=== PATIENT | female | born 1965 | race Caucasian/White ===

== ENCOUNTER 2017-04-11 06:48 | Day surgery (SDC) | payer BC, OTHER ==
[~2017-04-11 06:48] MED LIST: Lactated Ringers 1,000 ML IV SCH; cefOXitin 1 GM in Premix Bag 1 BAG IV SCH
[2017-04-11] MEDS ORDERED: Midazolam 1 MG/ML 2 ML SDV ONE (07:05)
[2017-04-11] MEDS ORDERED: fentaNYL 100 MCG/2 ML SDV ONE (07:05)
[2017-04-11] MEDS ORDERED: Propofol 200 MG/20 ML SDV ONE ×4 (07:05→08:30)
--- NOTE | 2017-04-11 07:15 | PCM.PREANE ---
Preanesthetic Assessment - Anesthesia/Transfusion/Family Hx Anesthesia History: Prior Anesthesia Without Reaction Family History of Anesthesia Reaction: No Transfusion History: No Prior Transfusion(s) Intubation History: Unknown - Review of Systems General: No Symptoms Pulmonary: No Symptoms Cardiovascular: No Symptoms Gastrointestinal: No Symptoms, Other (screening colonoscopy) Neurological: No Symptoms Other: Reports: None - Physical Assessment Height: 1.55 m Weight: 50.349 kg ASA Class: 2 Mental Status: Alert & Oriented x3 Airway Class: Mallampati = 2 Dentition: Reports: Normal Dentition Thyro-Mental Finger Breadths: 3 Mouth Opening Finger Breadths: 2 ROM/Head Extension: Full Lungs: Clear to Auscultation, Normal Respiratory Effort Cardiovascular: Regular Rate, Regular Rhythm - Lab Values: Laboratory Last Values Urine HCG, Qual NEGATIVE (NEGATIVE) 04/11/17 06:59 - Allergies Allergies/Adverse Reactions: Allergies Allergy/AdvReac Type Severity Reaction Status Date / Time No Known Allergies Allergy Verified 04/06/17 11:19 - Blood Blood Available: No - Anesthesia Plan Pre-Op Medication Ordered: None - Acknowledgements Anesthesia Type Planned: MAC Pt an Appropriate Candidate for the Planned Anesthesia: Yes Alternatives and Risks of Anesthesia Discussed w Pt/Guardian: Yes Pt/Guardian Understands and Agrees with Anesthesia Plan: Yes PreAnesthesia Questionnaire - Past Surgical History Head Surgeries/Procedures: Reports: None Cardiovascular Surgical History: Reports: Varicose Other Cardiovascular Surgeries/Procedures: varicose vein stripping left leg Female Surgical History: Reports: Breast Implant - SUBSTANCE USE Smoking Status *Q: Current Every Day Smoker (1/2 ppd) Tobacco Use Within Last Twelve Months: Cigarettes Recreational Drug Use History: No - HOME MEDS Home Medications: Home Meds . [No Known Home Meds] 04/06/17 [History] - CURRENT (IN HOUSE) MEDS Current Meds: Current Medications Cefoxitin Sodium 1 gm/ Premix 50 mls @ 100 mls/hr IV ONETIME ROBERTO Lactated Ringer's (Ringers, Lactated) 1,000 mls @ 125 mls/hr IV ASDIRECTED ROBERTO Discontinued Medications Fentanyl (Sublimaze) Confirm Administered Dose 100 mcg .ROUTE .STK-MED ONE Stop: 04/11/17 07:06 Lidocaine HCl (Xylocaine-Mpf 1%) Confirm Administered Dose 5 ml .ROUTE .STK-MED ONE Stop: 04/11/17 07:07 Midazolam HCl (Versed 1 Mg/Ml) Confirm Administered Dose 2 mg .ROUTE .STK-MED ONE Stop: 04/11/17 07:06 Propofol (Diprivan 20 Ml) Confirm Administered Dose 200 mg .ROUTE .STK-MED ONE Stop: 04/11/17 07:06
[2017-04-11] MEDS ORDERED: Phenylephrine/Normal Saline 100 MCG/ML 10 ML Syringe ONE (07:40)
[2017-04-11] MEDS ORDERED: ePHEDrine 50 MG/ML SDV ONE (07:41)
--- NOTE | 2017-04-11 08:50 | PCM.OPNOTE ---
- General Post-Op/Procedure Note Date of Surgery/Procedure: 04/11/17 Operative Procedure(s): Colonoscopy with sigmoid biopsy Pre Op Diagnosis: Desire for colorectal cancer screening Post-Op Diagnosis: Mild angiodysplasia Anesthesia Technique: MAC (ASA II) Primary Surgeon: Antelmo Dumont Tetryl Screen Operator: Bandar Robison Condition: Good Free Text/Narrative:: Dictation [id number] CPT CODE 39831
--- NOTE | 2017-04-11 10:41 | OR ---
SURGEON: Antelmo Dumont M.D. DATE OF PROCEDURE: 04/11/2017 OPERATION PERFORMED: Colonoscopy with biopsy. SYSTEMS COORDINATOR: Dr. Robison, PGY-2. ANESTHESIA: MAC. ASA CLASSIFICATION: II. PREOPERATIVE DIAGNOSIS: Desire for colorectal cancer screening. POSTOPERATIVE DIAGNOSIS: Mild angiodysplasia. DESCRIPTION OF PROCEDURE: The patient was taken to the endoscopy room, positioned on the endoscopy table in the left lateral decubitus position. Time-out was called for appropriate identification of the patient and procedure. Monitored anesthesia care was provided. The colonoscope was inserted into the rectum and advanced with difficulty to the cecum. Cecum was identified by internal landmarks and external pressure. The colonoscope was retroflexed in the cecum to visualize the ascending colon from below, then straightened and slowly withdrawn. The cecum, ascending colon, hepatic flexure, transverse colon, splenic flexure, and descending colon showed no tumors, polyps, diverticula, or angiodysplastic changes. There were what appears to be mild angiodysplastic changes in the sigmoid colon. Biopsies of this area were taken. No ulcerations were noted. There were no diverticular changes and no polyps in the sigmoid colon. Once the colonoscope was withdrawn to the rectum, it was retroflexed to visualize the anal orifice from above. No tumors, polyps, or acute hemorrhoidal changes were noted. The colonoscope was then straightened, the rectum aspirated, and the colonoscope removed. The patient tolerated the procedure well and was taken to recovery room in stable condition. SHANE / MAHIN /[id number] GENE
== END 2017-04-11 09:27 | disposition home or self-care (01) ==
LOC: MW.SDS 06:48
PROVIDERS: ATTEND Surgery
DX: Z12.11 Encounter for screening for malignant neoplasm of colon (principal); K55.20 Angiodysplasia of colon without hemorrhage; Z98.890 Other specified postprocedural states; F17.200 Nicotine dependence, unspecified, uncomplicated
CPT/HCPCS: 45380; 81025; J2250; J3010; 88305; J2704

== ENCOUNTER 2018-01-03 08:11 | Emergency (ER) | payer BC, OTHER ==
[2018-01-03] MEDS ORDERED: Sodium Chloride 0.9% 1,000 ML IV ONE (08:59)
--- NOTE | 2018-01-03 09:06 | EDM.PDOC ---
ED HPI GENERAL MEDICAL PROBLEM - General Chief Complaint: Headache Stated Complaint: HEAD AND BODYACHES Time Seen by Provider: 01/03/18 08:14 Source of Information: Reports: Patient History Limitations: Reports: No Limitations - History of Present Illness INITIAL COMMENTS - FREE TEXT/NARRATIVE: Alina Tam is a 52 y/o female presenting today to the ER accompanied by her . Per patient and , she stared feeling diffuse headache and body aches on Sunday and have remained since then. She has tried acetaminophen without relieve in body aches. Has been endorsing some pressure when moving her eyes. No change in vision. No discharge or swelling. No recent trauma. She denies any nausea, vomiting. No abdominal pain, dysuria or change in bowel movements. No other sick contacts at home. No similar symptoms in the past. No recent travels. Per , they have been out gardening and golfing where they have noticed mosquitoes. Headache Pain Score (Numeric/FACES): 7 - Related Data Allergies Allergy/AdvReac Type Severity Reaction Status Date / Time No Known Allergies Allergy Verified 01/03/18 08:25 Home Meds: Home Meds Diclofenac Sodium [Voltaren] 50 mg PO TID PRN #20 tab.ec 01/03/18 [Rx] Past Medical History Neurological History: Reports: Migraines Other Neuro History: infrequent migraines - Past Surgical History Head Surgeries/Procedures: Reports: None Cardiovascular Surgical History: Reports: Varicose Other Cardiovascular Surgeries/Procedures: varicose vein stripping left leg GI Surgical History: Reports: Colonoscopy Female Surgical History: Reports: Breast Implant Social & Family History - Family History Family Medical History: Noncontributory - Tobacco Use Smoking Status *Q: Current Every Day Smoker Years of Tobacco use: 35 Packs/Tins Daily: 1 - Caffeine Use Caffeine Use: Reports: Coffee - Recreational Drug Use Recreational Drug Use: No ED ROS GENERAL - Review of Systems Review Of Systems: See Below Constitutional: Reports: Weakness, Fatigue. Denies: Fever, Chills, Night Sweats HEENT: Reports: Eye Pain. Denies: Eye Discharge, Vertigo, Vision Change Respiratory: Reports: No Symptoms Cardiovascular: Reports: No Symptoms Endocrine: Reports: No Symptoms GI/Abdominal: Reports: No Symptoms : Reports: No Symptoms Musculoskeletal: Reports: Muscle Pain Skin: Reports: No Symptoms Neurological: Reports: Headache. Denies: Numbness, Seizure, Tingling, Change in Speech, Gait Disturbance Psychiatric: Reports: No Symptoms Hematologic/Lymphatic: Reports: No Symptoms Immunologic: Reports: No Symptoms - Physical Exam Exam: See Below Exam Limited By: No Limitations General Appearance: Alert, No Apparent Distress, Thin Eye Exam: Bilateral Eye: Normal Inspection, Other (discomfort with ocular movement. No discharge or conjunctival erythema.) Throat/Mouth: Normal Inspection, Normal Lips, Normal Teeth, Normal Gums, Normal Oropharynx, Normal Voice, No Airway Compromise Head Exam: Atraumatic, Normocephalic Neck: Normal Inspection, Supple, Non-Tender, Full Range of Motion Respiratory/Chest: No Respiratory Distress, Lungs Clear, Normal Breath Sounds, No Accessory Muscle Use, Chest Non-Tender Cardiovascular: Normal Peripheral Pulses, Regular Rate, Rhythm, No Edema, No Gallop, No JVD, No Murmur, No Rub GI/Abdominal: Normal Bowel Sounds, Soft, Non-Tender, No Organomegaly, No Distention, No Abnormal Bruit, No Mass Neuro Exam (Abbreviated): Alert, Oriented, CN II-XII Intact, Normal Cognition, Normal Gait, Normal Reflexes, No Motor/Sensory Deficits Extremities: Normal Inspection, Normal Range of Motion, Non-Tender, No Pedal Edema, Normal Capillary Refill Psychiatric: Normal Affect, Normal Mood Skin Exam: Warm, Dry, Intact, Normal Color, No Rash Course - Vital Signs Last Recorded V/S: Last Vital Signs Temp 36.8 C 01/03/18 08:19 Pulse 69 01/03/18 09:30 Resp 18 01/03/18 09:30 BP 94/62 01/03/18 09:30 Pulse Ox 98 01/03/18 09:30 - Orders/Labs/Meds Orders: Active Orders 24 hr Category Date Time Status UA W/MICROSCOPIC [URIN] Stat Lab 01/03/18 09:35 Ordered [facility] [REF] Stat Lab 01/03/18 09:03 Received Labs: Laboratory Tests 01/03/18 01/03/18 01/03/18 Range/Units 09:03 09:03 09:35 WBC 3.20 L (4.0-11.0) K/uL RBC 4.70 (4.30-5.90) M/uL Hgb 14.1 (12.0-16.0) g/dL Hct 41.7 (36.0-46.0) % MCV 88.7 (80.0-98.0) fL MCH 30.0 (27.0-32.0) pg MCHC 33.8 (31.0-37.0) g/dL RDW Std Deviation 42.4 (28.0-62.0) fl RDW Coeff of Анна 13 (11.0-15.0) % Plt Count 105 L (150-400) K/uL MPV 11.90 (7.40-12.00) fL Add Manual Diff YES Neutrophils % (Manual) 58 (48.0-80.0) % Lymphocytes % (Manual) 32 (16.0-40.0) % Monocytes % (Manual) 10 (0.0-15.0) % Nucleated RBC % 0.0 /100WBC Absolute Seg Neuts 1.9 (1.4-5.7) Lymphocytes # (Manual) 1.0 (0.6-2.4) Monocytes # (Manual) 0.3 (0.0-0.8) Nucleated RBCs # 0 K/uL Sodium 139 (136-145) mmol/L Potassium 4.0 (3.5-5.1) mmol/L Chloride 106 (98-107) mmol/L Carbon Dioxide 25.4 (21.0-32.0) mmol/L BUN 16 (7.0-18.0) mg/dL Creatinine 1.0 (0.6-1.0) mg/dL Est Cr Clr Drug Dosing 51.95 mL/min Estimated GFR (MDRD) 58.5 ml/min Glucose 83 (74-106) mg/dL Calcium 8.7 (8.5-10.1) mg/dL Total Bilirubin 0.3 (0.2-1.0) mg/dL AST 17 (15-37) IU/L ALT 21 (14-63) IU/L Alkaline Phosphatase 53 (46-116) U/L Total Protein 6.5 (6.4-8.2) g/dL Albumin 3.4 (3.4-5.0) g/dL Globulin 3.1 (2.0-3.5) g/dL Albumin/Globulin Ratio 1.1 L (1.3-2.8) Urine Color YELLOW Urine Appearance CLEAR Urine pH 5.5 (5.0-8.0) Ur Specific [place] >= 1.030 (1.001-1.035) Urine Protein NEGATIVE (NEGATIVE) mg/dL Urine Glucose (UA) NEGATIVE (NEGATIVE) mg/dL Urine Ketones NEGATIVE (NEGATIVE) mg/dL Urine Occult Blood NEGATIVE (NEGATIVE) Urine Nitrite NEGATIVE (NEGATIVE) Urine Bilirubin NEGATIVE (NEGATIVE) Urine Urobilinogen 0.2 (<2.0) EU/dL Ur Leukocyte Esterase NEGATIVE (NEGATIVE) Urine RBC 0-2 (0-2/HPF) Urine WBC 0-2 (0-5/HPF) Ur Epithelial Cells MANY (NONE-FEW) Urine Bacteria 1+ H (NEGATIVE) Meds: Medications Discontinued Medications Generic Name Dose Route Start Last Admin Trade Name Freq PRN Reason Stop Dose Admin Sodium Chloride 1,000 mls @ 999 mls/hr 01/03/18 08:59 01/03/18 09:28 Normal Saline IV 01/03/18 09:59 999 mls/hr .BOLUS ONE Administration Ketorolac Tromethamine 30 mg 01/03/18 09:50 01/03/18 09:55 Toradol IVPUSH 01/03/18 09:51 30 mg ONETIME ONE Administration - Re-Assessments/Exams Free Text/Narrative Re-Assessment/Exam: CT head w/o contrast did not show any intracranial hemorrhage. Chest xray did no show any acute pulmonary process. Ordered 1 L NS bolus and ketorolac 30 mg IV once. 01/03/18 09:55 Departure - Departure Time of Disposition: 10:20 Disposition: Home, Self-Care 01 Condition: Good Clinical Impression: Generalized body aches Headache Qualifiers: Headache type: other headache syndrome Qualified Code(s): G44.89 - Other headache syndrome - Discharge Information *PRESCRIPTION DRUG MONITORING PROGRAM REVIEWED*: Not Applicable *COPY OF PRESCRIPTION DRUG MONITORING REPORT IN PATIENT ALIX: Not Applicable Instructions: General Headache Without Cause, [id number], Musculoskeletal Pain Referrals: PCP,None [Primary Care Provider] - Forms: ED Department Discharge Additional Instructions: Take diclofenac 50 mg PO three times a day as needed for body aches. Stay hydrated and rest. Follow-up with your primary care provider within 1 week. - My Orders Last 24 Hours: My Active Orders 01/03/18 09:03 [facility] [REF] Stat 01/03/18 09:35 UA W/MICROSCOPIC [URIN] Stat - Assessment/Plan Last 24 Hours: My Active Orders 01/03/18 09:03 [facility] [REF] Stat 01/03/18 09:35 UA W/MICROSCOPIC [URIN] Stat
--- NOTE | 2018-01-03 09:33 | CR ---
EXAMINATION: Two-view chest (PA and Lateral views). HISTORY: Headache. FINDINGS: The trachea is midline. The cardiomediastinal silhouette is within normal limits. No pulmonary infilt rates, effusions or pneumothorax. Osseous structures appear unremarkable. IMPRESSION: No acute cardiopulmonary process.
--- NOTE | 2018-01-03 09:34 | CT ---
EXAMINATION: Non contrast CT head. Coronal and sagittal reformats. HISTORY: Headache FINDINGS: No evidence of intra or extra axial hemorrhage, mass, midline shift, hydrocephalus or edema. No hypoattenuation changes in the major vascular territories to suggest acute infarct. No abnormal intracranial calcifications are detected. No evidence of substantial vascular calcificat ions. There is opacification of a few ethmoid air cells. There is an mastoid air cells are clear. Pituitary fossa appears unremarkable. Orbits and globes are symmetric. Calvarium is intact. No evidence of skull fracture. IMPRESSION: No acute intracranial findings.
[2018-01-03] MEDS ORDERED: Ketorolac 30 MG/ML SDV IVPUSH ONE (09:50)
== END 2018-01-03 10:30 | disposition home or self-care (01) ==
LOC: MW.ED 08:11
DX: G44.89 Other headache syndrome (principal); R52 Pain, unspecified; F17.210 Nicotine dependence, cigarettes, uncomplicated
CPT/HCPCS: 36415; 70450; 71046; 80053; 81001; 85025; 86788; 96361; 96374; 99284; J1885; J7040

== ENCOUNTER 2018-02-23 21:52 | Emergency (ER) | payer OTHER ==
[2018-02-23] MEDS ORDERED: Pantoprazole 40 MG Vial IVPUSH ONE (21:57)
[2018-02-23] MEDS ORDERED: Sodium Chloride 0.9% 10 ML Syringe FLUSH PRN (21:57)
[2018-02-23] MEDS ORDERED: Sodium Chloride 0.9% 2.5 ML Syringe FLUSH PRN (21:57)
[2018-02-23] MEDS ORDERED: Ondansetron 4 MG/2 ML SDV IVPUSH ONE (21:57)
[2018-02-23] MEDS ORDERED: Sodium Chloride 0.9% 1,000 ML IV ONE (21:57)
[2018-02-23] MEDS ORDERED: Morphine 2 MG/ML Syringe IVPUSH ONE (21:57)
--- NOTE | 2018-02-23 22:01 | EDM.PDOC ---
ED HPI GENERAL MEDICAL PROBLEM - General Chief Complaint: Abdominal Pain Stated Complaint: PAIN IN STOMACHE Time Seen by Provider: 02/23/18 21:56 - History of Present Illness INITIAL COMMENTS - FREE TEXT/NARRATIVE: HISTORY AND PHYSICAL: History of present illness: The patient is a 52-year-old female who presents with sudden onset of mid epigastric pain that started while she was at a movie theater watching a movie. She said that she had grilled cheese for dinner as well as butter popcorn but has no history of food intolerance. She said the pain started suddenly sharp and is improved when she lays down. She had no nausea or vomiting and the pain did not radiate up to her chest and does not radiate right or left or to the back. She says she doesn't feel bloated and earlier today she had a completely normal day without any systemic complaints. She currently does not have any nausea and she had a normal bowel movement earlier today which was not black or bloody and not diarrhea. She has no urinary complaints and has a history of a bilateral tubal ligation. Initially the patient was rushed in by family and once she laid down she now rates the pain as a 3-4/10. She has no significant social history. She took no medications prior to coming here. She has no shortness of breath fevers chills or upper respiratory complaints and no flank or back pain. Review of systems: As per history of present illness and below otherwise all systems reviewed and negative. Past medical history: As per history of present illness and as reviewed below otherwise noncontributory. Surgical history: As per history of present illness and as reviewed below otherwise noncontributory. Social history: No reported history of drug or alcohol abuse. Family history: As per history of present illness and as reviewed below otherwise noncontributory. Physical exam: General: Well-developed well-nourished thin female who is nontoxic and is speaking clearly and easily in the ED and is in no overt distress. Vital signs are reviewed by me HEENT: Atraumatic, normocephalic, , negative for conjunctival pallor or scleral icterus, mucous membranes moist, throat clear, neck supple, nontender, trachea midline. Lungs: Clear to auscultation, breath sounds equal bilaterally, chest nontender. No wheezing stridor or work of breathing Heart: S1S2, regular rate and rhythm no overt murmurs Abdomen: Soft, nondistended, slightly hypoactive bowel sounds. There is tympany on percussion throughout the abdomen but more localized to the right of the umbilicus but there is no tenderness with this. There is some moderate epigastric tenderness on deep palpation does not localize right or left and no lower abdominal tenderness.. There is no rebound or guarding Negative for masses or hepatosplenomegaly. Negative for costovertebral tenderness. Pelvis: Stable nontender. Genitourinary: Deferred. Rectal: Deferred. Extremities: Atraumatic, negative for cords or calf pain. Neurovascular unremarkable. Neuro: Awake, alert, oriented. Cranial nerves II through XII unremarkable. Cerebellum unremarkable. Motor and sensory unremarkable throughout. Exam nonfocal. Diagnostics: CBC CMP troponin and amylase and lipase UA H. pylori CT scan of the abdomen and pelvis Therapeutics: IV O2 monitor IV fluids Protonix Zofran and morphine Patient refused the morphine All testing results of been discussed with the patient and at bedside. Care plan for home includes hydration rest and close follow-up as well as over- the-counter medications Impression: Acute epigastric pain, improved; enteritis Definitive disposition and diagnosis as appropriate pending reevaluation and review of above. abdominal Pain Score (Numeric/FACES): 10 - Related Data Allergies Allergy/AdvReac Type Severity Reaction Status Date / Time No Known Allergies Allergy Verified 02/23/18 22:06 Home Meds: Home Meds . [No Known Home Meds] 02/23/18 [History] Past Medical History Neurological History: Reports: Migraines Other Neuro History: infrequent migraines - Past Surgical History Head Surgeries/Procedures: Reports: None Cardiovascular Surgical History: Reports: Varicose Other Cardiovascular Surgeries/Procedures: varicose vein stripping left leg GI Surgical History: Reports: Colonoscopy Female Surgical History: Reports: Breast Implant Social & Family History - Family History Family Medical History: Noncontributory - Caffeine Use Caffeine Use: Reports: Coffee ED ROS GENERAL - Review of Systems Review Of Systems: ROS reveals no pertinent complaints other than HPI. ED EXAM, GENERAL - Physical Exam Exam: See Below (See dictation) Course - Vital Signs Last Recorded V/S: Last Vital Signs Temp 36.5 C 02/23/18 21:52 Pulse 63 02/23/18 21:52 Resp 20 02/23/18 21:52 BP 120/70 02/23/18 21:52 Pulse Ox 97 02/23/18 21:52 - Orders/Labs/Meds Orders: Active Orders 24 hr Category Date Time Status Cardiac Monitoring [RC] . DIRECTED Care 02/23/18 21:56 Active EKG Documentation Completion [RC] STAT Care 02/23/18 21:56 Active Oxygen Therapy, ED [RC] ASDIRECTED Care 02/23/18 21:56 Active Pulse Oximetry [RC] ASDIRECTED Care 02/23/18 21:56 Active Abdomen Pelvis w Cont [CT] Stat Exams 02/23/18 21:57 Taken Sodium Chloride 0.9% [Saline Flush] Med 02/23/18 21:57 Active 10 ml FLUSH ASDIRECTED PRN Sodium Chloride 0.9% [Saline Flush] Med 02/23/18 21:57 Active 2.5 ml FLUSH ASDIRECTED PRN Saline Lock Insert [OM.PC] Stat Oth 02/23/18 21:56 Ordered Medication Orders Sodium Chloride (Saline Flush) 10 ml FLUSH ASDIRECTED PRN PRN Reason: Keep Vein Open Sodium Chloride (Saline Flush) 2.5 ml FLUSH ASDIRECTED PRN PRN Reason: Keep Vein Open Labs: Laboratory Tests 02/23/18 02/23/18 02/23/18 Range/Units 21:57 21:57 21:57 WBC 4.55 (4.0-11.0) K/uL RBC 4.49 (4.30-5.90) M/uL Hgb 13.6 (12.0-16.0) g/dL Hct 40.0 (36.0-46.0) % MCV 89.1 (80.0-98.0) fL MCH 30.3 (27.0-32.0) pg MCHC 34.0 (31.0-37.0) g/dL RDW Std Deviation 44.1 (28.0-62.0) fl RDW Coeff of Анна 14 (11.0-15.0) % Plt Count 141 L (150-400) K/uL MPV 12.50 H (7.40-12.00) fL Neut % (Auto) 38.7 L (48.0-80.0) % Lymph % (Auto) 45.9 H (16.0-40.0) % [place] % (Auto) 12.3 (0.0-15.0) % Eos % (Auto) 2.4 (0.0-7.0) % Baso % (Auto) 0.7 (0.0-1.5) % Neut # (Auto) 1.8 (1.4-5.7) K/uL Lymph # (Auto) 2.1 (0.6-2.4) K/uL [place] # (Auto) 0.6 (0.0-0.8) K/uL Eos # (Auto) 0.1 (0.0-0.7) K/uL Baso # (Auto) 0.0 (0.0-0.1) K/uL Nucleated RBC % 0.0 /100WBC Nucleated RBCs # 0 K/uL Sodium 145 (136-145) mmol/L Potassium 3.7 (3.5-5.1) mmol/L Chloride 109 H (98-107) mmol/L Carbon Dioxide 29.1 (21.0-32.0) mmol/L BUN 11 (7.0-18.0) mg/dL Creatinine 0.8 (0.6-1.0) mg/dL Est Cr Clr Drug Dosing 64.34 mL/min Estimated GFR (MDRD) > 60.0 ml/min Glucose 78 (74-106) mg/dL Calcium 9.2 (8.5-10.1) mg/dL Total Bilirubin 0.2 (0.2-1.0) mg/dL AST 14 L (15-37) IU/L ALT 25 (14-63) IU/L Alkaline Phosphatase 67 (46-116) U/L Troponin I < 0.050 (0.000-0.056) ng/mL Total Protein 6.5 (6.4-8.2) g/dL Albumin 3.5 (3.4-5.0) g/dL Globulin 3.0 (2.0-3.5) g/dL Albumin/Globulin Ratio 1.2 L (1.3-2.8) Amylase 41 (25-115) U/L Lipase 178 (73-393) U/L Urine Color Urine Appearance Urine pH (5.0-8.0) Ur Specific [place] (1.001-1.035) Urine Protein (NEGATIVE) mg/dL Urine Glucose (UA) (NEGATIVE) mg/dL Urine Ketones (NEGATIVE) mg/dL Urine Occult Blood (NEGATIVE) Urine Nitrite (NEGATIVE) Urine Bilirubin (NEGATIVE) Urine Urobilinogen (<2.0) EU/dL Ur Leukocyte Esterase (NEGATIVE) Urine RBC (0-2/HPF) Urine WBC (0-5/HPF) Ur Epithelial Cells (NONE-FEW) Amorphous Sediment (NEGATIVE) Urine Bacteria (NEGATIVE) H. pylori IgG Antibody NEGATIVE (NEG) 02/23/18 Range/Units 23:30 WBC (4.0-11.0) K/uL RBC (4.30-5.90) M/uL Hgb (12.0-16.0) g/dL Hct (36.0-46.0) % MCV (80.0-98.0) fL MCH (27.0-32.0) pg MCHC (31.0-37.0) g/dL RDW Std Deviation (28.0-62.0) fl RDW Coeff of Анна (11.0-15.0) % Plt Count (150-400) K/uL MPV (7.40-12.00) fL Neut % (Auto) (48.0-80.0) % Lymph % (Auto) (16.0-40.0) % [place] % (Auto) (0.0-15.0) % Eos % (Auto) (0.0-7.0) % Baso % (Auto) (0.0-1.5) % Neut # (Auto) (1.4-5.7) K/uL Lymph # (Auto) (0.6-2.4) K/uL [place] # (Auto) (0.0-0.8) K/uL Eos # (Auto) (0.0-0.7) K/uL Baso # (Auto) (0.0-0.1) K/uL Nucleated RBC % /100WBC Nucleated RBCs # K/uL Sodium (136-145) mmol/L Potassium (3.5-5.1) mmol/L Chloride (98-107) mmol/L Carbon Dioxide (21.0-32.0) mmol/L BUN (7.0-18.0) mg/dL Creatinine (0.6-1.0) mg/dL Est Cr Clr Drug Dosing mL/min Estimated GFR (MDRD) ml/min Glucose (74-106) mg/dL Calcium (8.5-10.1) mg/dL Total Bilirubin (0.2-1.0) mg/dL AST (15-37) IU/L ALT (14-63) IU/L Alkaline Phosphatase (46-116) U/L Troponin I (0.000-0.056) ng/mL Total Protein (6.4-8.2) g/dL Albumin (3.4-5.0) g/dL Globulin (2.0-3.5) g/dL Albumin/Globulin Ratio (1.3-2.8) Amylase (25-115) U/L Lipase (73-393) U/L Urine Color YELLOW Urine Appearance SLT CLOUDY Urine pH 6.5 (5.0-8.0) Ur Specific [place] 1.010 (1.001-1.035) Urine Protein NEGATIVE (NEGATIVE) mg/dL Urine Glucose (UA) NEGATIVE (NEGATIVE) mg/dL Urine Ketones NEGATIVE (NEGATIVE) mg/dL Urine Occult Blood NEGATIVE (NEGATIVE) Urine Nitrite NEGATIVE (NEGATIVE) Urine Bilirubin NEGATIVE (NEGATIVE) Urine Urobilinogen 0.2 (<2.0) EU/dL Ur Leukocyte Esterase NEGATIVE (NEGATIVE) Urine RBC 0-2 (0-2/HPF) Urine WBC 1-3 (0-5/HPF) Ur Epithelial Cells FEW (NONE-FEW) Amorphous Sediment FEW (NEGATIVE) Urine Bacteria FEW (NEGATIVE) H. pylori IgG Antibody (NEG) Meds: Medications Generic Name Dose Route Start Last Admin Trade Name Freq PRN Reason Stop Dose Admin Sodium Chloride 10 ml 02/23/18 21:57 Saline Flush FLUSH ASDIRECTED PRN Keep Vein Open Sodium Chloride 2.5 ml 02/23/18 21:57 Saline Flush FLUSH ASDIRECTED PRN Keep Vein Open Discontinued Medications Generic Name Dose Route Start Last Admin Trade Name Freq PRN Reason Stop Dose Admin Sodium Chloride 1,000 mls @ 999 mls/hr 02/23/18 21:57 02/23/18 22:10 Normal Saline IV 02/23/18 22:57 999 mls/hr STAT ONE Administration Iopamidol 100 ml 02/23/18 22:58 02/23/18 22:59 Isovue-370 (76%) IVPUSH 02/23/18 22:59 100 ml ONETIME ONE Administration Morphine Sulfate 2 mg 02/23/18 21:57 Morphine IVPUSH 02/23/18 21:58 ONETIME ONE Ondansetron HCl 4 mg 02/23/18 21:57 02/23/18 22:10 Zofran IVPUSH 02/23/18 21:58 4 mg ONETIME ONE Administration Pantoprazole Sodium 80 mg 02/23/18 21:57 02/23/18 22:10 Protonix Iv IVPUSH 02/23/18 21:58 80 mg .BOLUS ONE Administration Departure - Departure Time of Disposition: 23:56 Disposition: Home, Self-Care 01 Condition: Good Clinical Impression: Epigastric abdominal pain, Enteritis - Discharge Information Forms: ED Department Discharge Additional Instructions: The following information is given to patients seen in the emergency department who are being discharged to home. This information is to outline your options for follow-up care. We provide all patients seen in our emergency department with a follow-up referral. The need for follow-up, as well as the timing and circumstances, are variable depending upon the specifics of your emergency department visit. If you don't have a primary care physician on staff, we will provide you with a referral. We always advise you to contact your personal physician following an emergency department visit to inform them of the circumstance of the visit and for follow-up with them and/or the need for any referrals to a consulting specialist. The emergency department will also refer you to a specialist when appropriate. This referral assures that you have the opportunity for followup care with a specialist. All of these measure are taken in an effort to provide you with optimal care, which includes your followup. Under all circumstances we always encourage you to contact your private physician who remains a resource for coordinating your care. When calling for followup care, please make the office aware that this follow-up is from your recent emergency room visit. If for any reason you are refused follow-up, please contact the emergency department at and ask to speak to the emergency department charge nurse. [facility] Primary care- Internal Medicine and Family [address] [address] Please push hydration and use [id number] preparations such as Gas-X or Mylicon to assist with gas evacuation. Rest and please call and schedule a follow-up appointment in our clinic with one of our providers for reevaluation and further care. Return to ER as needed and as discussed - My Orders Last 24 Hours: My Active Orders 02/23/18 21:56 Cardiac Monitoring [RC] . DIRECTED EKG Documentation Completion [RC] STAT Oxygen Therapy, ED [RC] ASDIRECTED Pulse Oximetry [RC] ASDIRECTED Saline Lock Insert [OM.PC] Stat 02/23/18 21:57 Abdomen Pelvis w Cont [CT] Stat Sodium Chloride 0.9% [Saline Flush] 10 ml FLUSH ASDIRECTED PRN Sodium Chloride 0.9% [Saline Flush] 2.5 ml FLUSH ASDIRECTED PRN - Assessment/Plan Last 24 Hours: My Active Orders 02/23/18 21:56 Cardiac Monitoring [RC] . DIRECTED EKG Documentation Completion [RC] STAT Oxygen Therapy, ED [RC] ASDIRECTED Pulse Oximetry [RC] ASDIRECTED Saline Lock Insert [OM.PC] Stat 02/23/18 21:57 Abdomen Pelvis w Cont [CT] Stat Sodium Chloride 0.9% [Saline Flush] 10 ml FLUSH ASDIRECTED PRN Sodium Chloride 0.9% [Saline Flush] 2.5 ml FLUSH ASDIRECTED PRN
[2018-02-23 22:28] LABS: CHLORIDE,CL 109 mmol/L (98-107); SODIUM,NA 145 mmol/L (136-145)
[2018-02-23] MEDS ORDERED: Iopamidol 755 Mg/ML 100 ML Bottle IVPUSH ONE (22:58)
--- NOTE | 2018-02-25 14:57 | CT ---
EXAM DATE: 02/23/18 PATIENT'S AGE: 52 Patient: MEL CABRAL Facility: [place], [place] Site . Site : [id number] Study: CT Abdomen -02/23/2018 10:58:52 PM Ordering Physician: Albert Fernández Final Report: INDICATION: Mid abdominal pain TECHNIQUE: CT abdomen and pelvis acquired with IV contrast. COMPARISON: None FINDINGS: Lower chest: Unremarkable. Liver: 11 millimeter hepatic cyst involving the caudate lobe. Spleen: Unremarkable. Pancreas: Unremarkable. Gallbladder and bile ducts: Unremarkable. Kidneys: Unremarkable. Adrenal glands: Unremarkable. GI tract: Fluid-filled large and small bowel loop. Appendix is normal. Vascular structures: Possible filling defect involving the mid left renal vein.. Lymph nodes: Unremarkable. Miscellaneous: Unremarkable. No free air or significant free fluid. Pelvic Organs: Unremarkable. Bones: Unremarkable for age. IMPRESSION: Fluid filled large and small bowel loops. Correlate with gastroenteritis clinically. Possible small filling defect involving the left mid renal vein. Renal vein ultrasound would be helpful to further characterize. Dictated by Jourdan Argueta MD @ 02/23/2018 11:33:24 PM Please note that all CT scans at this facility use dose modulation, iterative reconstruction, and/or weight-based dosing when appropriate to reduce radiation dose to as low as reasonably achievable. Dictated by: Jourdan Argueta MD @ 02/23/2018 23:33:39 (Electronic Signature) Report Signed by Proxy. [facility]
== END 2018-02-24 00:05 | disposition home or self-care (01) ==
LOC: MW.ED 21:52
DX: K52.9 Noninfective gastroenteritis and colitis, unspecified (principal); Z98.51 Tubal ligation status
CPT/HCPCS: 36415; 74177; 80053; 81001; 82150; 83690; 84484; 85025; 86677; 93005; 96361; 96374; 96375; 99284; C9113; J2405; J7040; Q9967; 99283